=== PATIENT | female | born 1970 | race Caucasian/White ===

== ENCOUNTER 2024-05-26 09:18 | Outpatient (REF) | payer OTHER, MEDICARE, SELFPAY ==
[2024-05-26 10:34] LABS: MANUAL DIFF FLAG NO
[2024-05-26 11:03] LABS: Basophils Absolute Auto 0.1 X10*3/uL (0.0-0.2); Basophils Percent Auto 1.6 % (0-2); Eosinophils Absolute Auto 0.1 X10*3/uL (0.0-0.4); Eosinophils Percent Auto 1.9 % (0-4); Hematocrit 44.2 % (37.0-47.0); Hemoglobin 15.1 g/dl (12.0-16.0); Imm Gran Abs Auto 0.06 X10*3/uL (0.00-0.03); Imm Gran Pct Auto 1.1 % (0.0-0.4); Lymphocytes Absolute Auto 1.4 X10*3/uL (1.2-4.9); Lymphocytes Percent Auto 24.5 % (20-40); Mean Corpuscular HGB Conc 34.2 g/dl (31.0-35.0); Mean Platelet Volume 9.3 fL (9.4-12.3); Monocytes Absolute Auto 0.5 X10*3/uL (0.1-1.2); Monocytes Percent Auto 8.6 % (2-11); Neutrophils Absolute Auto 3.5 x10*3/uL (2.0-8.3); Neutrophils Percent Auto 62.3 % (45-73); Platelet Count 278 X10*3/uL (160-400); Red Cell Distribution Width 13.2 % (11.0-16.0); White Blood Count 5.7 X10*3/uL (4.8-10.8)
[2024-05-26 11:50] LABS: Alanine Aminotransferase 26 U/L (0-31); Albumin Level 4.4 g/dL (3.5-5.0); Alkaline Phosphatase 108 U/L (39-117); Anion Gap 14 (12-20); Aspartate Amino Transferase 30 U/L (5-31); Bilirubin Total 0.2 mg/dL (0.0-1.0); Blood Urea Nitrogen 13 mg/dL (9-16); Carbon Dioxide 26 mmol/L (22-29); Chloride 102 mmol/L (96-108); Estimated Glomerular Filt Rate > 60; Glucose Random 74 mg/dL (60-115); Potassium 4.1 mmol/L (3.3-5.1); Sodium 138 mmol/L (135-145); Total Protein 7.2 g/dL (6.5-8.0)
== END 2024-05-26 09:19 | disposition home or self-care (01) ==
LOC: HO.LAB 09:18
PROVIDERS: Visit Provider Nurse Practitioner
DX: Z01.818 Encounter for other preprocedural examination (principal); K22.70 Barrett's esophagus without dysplasia
CPT/HCPCS: 36415; 80053; 85025

== ENCOUNTER 2024-05-26 09:18 | Outpatient (AMB) | payer OTHER, MEDICARE, SELFPAY ==
--- NOTE | 2024-05-26 09:19 | A.OFFVIS_ITS ---
Vital Signs 3 05/26/24 09:20 Height 5 ft Weight 180 lb 12.465 oz BMI 35.3 BP 174/89 H Blood Pressure Location Lt brachial Position Sitting Respiration 87 H Intake Visit Reasons: Colonoscopy Screening Intake Note: CC: Last colonoscopy was done at [facility] 5 years ago and pre cancerous polyps were removed. She also states that she had an EGD done about 3 years ago at [facility] and was diagnosed with Epstein's esophagus. She also reports family hx of esophageal cancer. 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 Pt is s/p x5 strokes. Credentialing Analyst Required: No Accompanied by: self Allergies cephalexin [From Keflex] Allergy (Unknown, Verified 05/26/24 09:26) Unknown ciprofloxacin [From Cipro] Allergy (Unknown, Verified 05/26/24 09:26) Unknown meperidine [From Demerol] Allergy (Unknown, Verified 05/26/24 09:26) Unknown red dye Allergy (Unknown, Verified 05/26/24 09:44) Unknown terbutaline Allergy (Unknown, Verified 05/26/24 09:44) Unknown topiramate [From Topamax] Allergy (Unknown, Verified 05/26/24 09:44) Unknown HPI HPI Colonoscopy Screening: Details: 54-year-old female here for preprocedural meeting to discuss a screening colonoscopy. [facility] [place]. PMX Obesity Migraines Moyamoya Disease Herpes simplex GERD Barretts esophagus Nephrolithiasis * SURGICAL HISTORY brain vessel bypass OOpharectomy Tonsillectomy Eustasian tubes LIthotripsy Lap band with removal * ALLERGIES Keflex - hives Cipro - diarrhea Demerol - questionable had IV infiltration Topamax - renal stones Terbutaline - hives Red dye - ? migraines * MEDITECH LABS: none TODAY'S VISIT Her prior scope was 5 years ago and polyps were found at [facility]. EGD was at [facility]. She is experiencing incomplete evacuation this has changed over the past 8 mos she has had 4 children all vaginal, recommend a trial of senna. She has nausea r/t her migraines and is on zofran and compazine. At times she uses THC oil for his. She feels her GERD is controlled with the GERD and removal of the lap band. There are no prior problems with anesthesia or sedation. She denies any cardiac problems but has a history of strokes and is on asa only, she denies any respiratory problems No ID problems. No known FHX of crc or polyps but she has polyps in past scopes. [facility] Medical History Stroke Surgical History History of left oophorectomy History of esophagogastroduodenoscopy (EGD) H/O brain surgery LAP-BAND surgery status H/O colonoscopy Family History Father Esophageal cancer Paternal Uncle Esophageal cancer Paternal Aunt Esophageal cancer Paternal Uncle Esophageal cancer Maternal Grandmother Breast cancer Sister Breast cancer Family/Other Breast cancer Social History Alcohol intake: current Alcohol intake frequency: holidays/special occasions only Patient Tobacco Use Status: Former Tobacco user Years Smoked: quit 20 years ago Review of Systems Const Denies fatigue, Denies fever(s), Denies night sweats, Denies poor appetite and Denies weight loss ENT Reports Normal hearing present, Denies dental pain, Denies dysphagia, Denies hearing loss, Denies mouth pain, Denies odynophagia, Denies throat swelling, Denies tongue swelling and Reports other (Dentition adequate) Card Reports no additional complaints Resp Reports no additional complaints GI Details: Denies abdominal pain, Denies melena, Denies bloating, Denies hematochezia, Reports constipation, Denies GI cramping, Denies dysphagia, Denies excessive flatus, Denies early satiety, Denies heartburn, Denies diarrhea, Denies nausea, Denies odynophagia, Denies vomiting and Denies hematemesis Skin/Breast Denies pruritus, Denies lesions, Denies rash and Denies jaundice Neuro Reports Normal hearing present and Denies Abnormal speech present Endo Denies fatigue Aller/Immun Denies throat swelling and Denies tongue swelling Physical Exam Vital Signs: Last Vital Signs Resp 87 H 05/26/24 09:20 BP 174/89 H 05/26/24 09:20 BMI result Body Mass Index 35.3 Const General: cooperative, no acute distress, well developed and well groomed Nutritional Appearance: well nourished and obese Orientation/consciousness: oriented to person, oriented to place and oriented to time Limitations: No language barrier HEENT Head: Yes normocephalic and Yes atraumatic Eyes General: appearance normal, both eyes and all related structures Pupils: Equal, round and reactive pupils present Neck Neck: Yes normal visual inspection and Yes no lymphadenopathy Thyroid: Thyroid normal Resp Effort & Inspection: normal respiratory effort and able to speak in complete sentences Auscultation: clear to auscultation bilaterally Cardio Rate: regular rate Rhythm: regular rhythm Heart sounds: Normal, physiologic split S2 sound present Peripheral pulses: radial pulses present and posterior tibial pulses present GI Inspection: No distended, No Abdominal panniculus present, Yes obesity and Yes striae Palpation (GI): Soft to palpation, nontender, no guarding, not rigid and No hepatosplenomegaly present Percussion: Yes normal to percussion Auscultation: normal bowel sounds Rectal Exam - Female: deferred Abdomen image: 2 1. surgical scar 2. Skin General skin exam: no rashes or lesions noted, turgor normal, skin not dry, no jaundice, No spider nevi and no striae Rashes: no rashes Nails: normal Neuro General: oriented to person, oriented to place and oriented to time Cranial nerves: Yes Equal, round and reactive pupils present and Yes Normal hearing present Speech: No Abnormal speech present Extrem General: Yes normal to inspection, No clubbing, No cyanosis and No edema Psych Appearance: grossly normal and well kempt Mental Status: mental status grossly normal Speech and movement: Normal speech and movement present Affect: normal affect Attitude: cooperative Thought process: Normal thought process present and not confabulating Thought content: Normal thought content present Insight: Good insight present (Psych) Judgement: Good judgement present (Psych) Assessment & Plan Assessment & Plan (1) Pre-op examination: Code(s): Z01.818 - Encounter for other preprocedural examination Category: Medical (2) SSBE (short-segment Epstein's esophagus): Code(s): K22.70 - Epstein's esophagus without dysplasia Category: Medical (3) Chronic anticoagulation: Code(s): Z79.01 - intermodal dispatcher (current) use of anticoagulants Category: Medical (4) Constipation: Code(s): K59.00 - Constipation, unspecified Category: Medical Plan Her prior scope was 5 years ago and polyps were found at [facility]. EGD was at [facility]. She is experiencing incomplete evacuation this has changed over the past 8 mos she has had 4 children all vaginal, recommend a trial of senna. She has nausea r/t her migraines and is on zofran and compazine. At times she uses THC oil for his. She feels her GERD is controlled with the GERD and removal of the lap band. There are no prior problems with anesthesia or sedation. She denies any cardiac problems but has a history of strokes and is on asa only, she denies any respiratory problems No ID problems. No known FHX of crc or polyps but she has polyps in past scopes. Orders: Orders 2 Complete Blood Count Auto Diff 05/26/24 Z01.818 - Encounter for other preprocedural examination, K22.70 - Epstein's esophagus without dysplasia EGD/[facility] - GI Use Only 05/26/24 Z01.818 - Encounter for other preprocedural examination, K22.70 - Epstein's esophagus without dysplasia Comprehensive Met. Panel 05/26/24 Z01.818 - Encounter for other preprocedural examination, K22.70 - Epstein's esophagus without dysplasia Medications: New 2 sennosides (Senna Laxative) 17.2 mg (2 x 8.6 mg) PO BEDTIME 60 tabs 3RF K59.00 - Constipation, unspecified polyethylene glycol 3350 (Miralax) 238 grams PO ONCE 238 grams 0RF colonoscopy prep 1 day bisacodyl (Dulcolax (bisacodyl)) 10 mg (2 x 5 mg) PO BEDTIME 4 tabs 0RF 2 days Coding Level of Care Code New Pt Level 3 (89439) Diagnoses Pre-op examination Z01.818 SSBE (short-segment Epstein's esophagus) K22.70 Chronic anticoagulation Z79.01 Constipation K59.00
[2024-05-26 09:20] VITALS: BP 174/89; RESP 87; BMI 35.3
== END 2024-05-26 10:15 | disposition home or self-care (01) ==
LOC: HO.HGI 09:18
PROVIDERS: Visit Provider Nurse Practitioner
DX: Z01.818 Encounter for other preprocedural examination (principal); Z12.11 Encounter for screening for malignant neoplasm of colon; Z86.0100 Personal history of colon polyps, unspecified; K22.70 Barrett's esophagus without dysplasia; K59.00 Constipation, unspecified
CPT/HCPCS: S0285

== ENCOUNTER 2024-09-07 10:51 | Day surgery (SDC) | payer OTHER, MEDICARE, SELFPAY ==
[2024-09-02 15:41] VITALS: BMI 35.3
--- NOTE | 2024-09-03 10:10 | P.CONAN_ITS ---
Documented by User: Shaylee Alvarez NP 09/03/24 10:18 HPI - Anesthesia Eval Consult details Narrative: 54yo F for Upper Endoscopy and Colonoscopy [facility] ED 07/2024 with palps. Negative acute work up in ED. Seen by PCP. ECHO and holter done. Cardiology f/u visit 09/06/24. Requested office fax note over after appointment for review DOS. 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 [facility] Active Problems Active Problems: All Active Problems Constipation (Acute) History of multiple strokes (Acute) Chronic anticoagulation (Acute) Pre-op examination (Acute) SSBE (short-segment Epstein's esophagus) (Acute) GERD (gastroesophageal reflux disease) (Acute) Herpes simplex (Acute) Migraines (Acute) Obesity (Acute) Moyamoya disease (Acute) Past Medical History Medical History (Updated 09/02/24 @ 15:48 by Mahsa Garcia RN) H/O nausea Constipation GERD (gastroesophageal reflux disease) Epstein's esophagus Hx of renal calculi Migraines Anxiety History of palpitations Moyamoya disease Stroke Family History Family History Father Esophageal cancer Paternal Uncle Esophageal cancer Paternal Aunt Esophageal cancer Paternal Uncle Esophageal cancer Maternal Grandmother Breast cancer Sister Breast cancer Family/Other Breast cancer Surgical History Surgical History (Updated 09/07/24 @ 09:06 by Cathleen Pena RN) Hx of tonsillectomy History of left oophorectomy History of esophagogastroduodenoscopy (EGD) H/O brain surgery LAP-BAND surgery status H/O colonoscopy Social History Social History (Updated 09/02/24 @ 15:49 by Mahsa Garcia RN) Household Members: Spouse Housing: House Are you a primary healthcare administration intern to a significant other at home: No Do you presently have visiting nurse or other home services: No Alcohol intake: current Alcohol intake frequency: holidays/special occasions only Patient Tobacco Use Status: Former Tobacco user Tobacco use type: Cigarette Years Smoked: quit 20 years ago Smoked in Last 30 Days: No Substance Use Type Other:: THC oil Have you been hit, kicked, punched, or otherwise hurt by someone within the past year? If so, by whom?: No Are you DNR?: No Advance Directives: No (will bring dos) Advance Directives Information Provided: Yes Advance Directives on File: No Meds Allergies Allergy/AdvReac Type Severity Reaction Status Date / Time red dye Allergy Severe migraines Verified 09/07/24 11:05 cephalexin [From Keflex] Allergy Intermediate Hives Verified 09/07/24 11:05 ciprofloxacin [From Cipro] Allergy Intermediate Hives Verified 09/07/24 11:05 meperidine [From Demerol] Allergy Intermediate Hives Verified 09/07/24 11:05 terbutaline Allergy Unknown Unknown Verified 09/07/24 11:05 topiramate [From Topamax] AdvReac Intermediate renal Verified 09/07/24 11:05 calculi Home Medications ?Medication ?Instructions ?Recorded ?Confirmed ?Last Taken ?Type THC PO PRN Migraine Headache 05/26/24 Unknown History aspirin 325 mg tablet 325 mg PO DAILY 05/26/24 09/02/24 09/01/24 History black cohosh 200 mg capsule 200 mg PO DAILY 05/26/24 09/02/24 Unknown History botox injections PO .every 12 weeks 05/26/24 Unknown History erenumab-aooe 140 mg/mL 140 mg subcut .one a month 05/26/24 09/02/24 Unknown History subcutaneous auto-injector (Aimovig Autoinjector) fluticasone propionate 50 spray intranasal 05/26/24 Unknown History mcg/actuation nasal spray,suspension verapamil 120 mg 24 hr 120 mg PO DAILY 05/26/24 09/07/24 09/07/24 History capsule,extended release gmfusrdrsv-lxdpbubabyfmp-uutzmgjm 1 tab PO Q6H PRN Migraine Headache 09/02/24 09/02/24 Unknown History 50 mg-325 mg-40 mg tablet lisinopril 5 mg tablet 5 mg PO DAILY 09/02/24 09/02/24 Unknown History loratadine 10 mg capsule 10 mg PO DAILY 09/02/24 09/02/24 Unknown History Exam Height,Weight and Vital Signs: Height 5 ft Weight 82.1 kg Pertinent Lab Results Pertinent Lab Results: Laboratory Tests 05/26/24 10:34 WBC 5.7 Hgb 15.1 Hct 44.2 Plt Count 278 Sodium 138 Potassium 4.1 Chloride 102 Carbon Dioxide 26 BUN 13 Creatinine 0.73 Assessment and Plan Assessment Anesthesia Assessment: Chart Reviewed Documented by User: Cristian Samson MD 09/07/24 12:17 PMFSH Past Medical History Medical History (Updated 09/02/24 @ 15:48 by Mahsa Garcia, RN) H/O nausea Constipation GERD (gastroesophageal reflux disease) Epstein's esophagus Hx of renal calculi Migraines Anxiety History of palpitations Moyamoya disease Stroke Family History Family History Father Esophageal cancer Paternal Uncle Esophageal cancer Paternal Aunt Esophageal cancer Paternal Uncle Esophageal cancer Maternal Grandmother Breast cancer Sister Breast cancer Family/Other Breast cancer Family history of problems with anesthesia: No Surgical History Surgical History (Updated 09/07/24 @ 09:06 by Cathleen Pena, JANNETTE) Hx of tonsillectomy History of left oophorectomy History of esophagogastroduodenoscopy (EGD) H/O brain surgery LAP-BAND surgery status H/O colonoscopy History of Problems with Anesthesia: No Social History Social History (Updated 09/02/24 @ 15:49 by Mahsa Garcia, JANNETTE) Household Members: Spouse Housing: House Are you a primary healthcare administration intern to a significant other at home: No Do you presently have visiting nurse or other home services: No Alcohol intake: current Alcohol intake frequency: holidays/special occasions only Patient Tobacco Use Status: Former Tobacco user Tobacco use type: Cigarette Years Smoked: quit 20 years ago Smoked in Last 30 Days: No Substance Use Type Other:: THC oil Have you been hit, kicked, punched, or otherwise hurt by someone within the past year? If so, by whom?: No Are you DNR?: No Advance Directives: No (will bring dos) Advance Directives Information Provided: Yes Advance Directives on File: No Meds Allergies Allergy/AdvReac Type Severity Reaction Status Date / Time red dye Allergy Severe migraines Verified 09/07/24 11:05 cephalexin [From Keflex] Allergy Intermediate Hives Verified 09/07/24 11:05 ciprofloxacin [From Cipro] Allergy Intermediate Hives Verified 09/07/24 11:05 meperidine [From Demerol] Allergy Intermediate Hives Verified 09/07/24 11:05 terbutaline Allergy Unknown Unknown Verified 09/07/24 11:05 topiramate [From Topamax] AdvReac Intermediate renal Verified 09/07/24 11:05 calculi Home Medications ?Medication ?Instructions ?Recorded ?Confirmed ?Last Taken ?Type THC PO PRN Migraine Headache 05/26/24 Unknown History aspirin 325 mg tablet 325 mg PO DAILY 05/26/24 09/02/24 09/01/24 History black cohosh 200 mg capsule 200 mg PO DAILY 05/26/24 09/02/24 Unknown History botox injections PO .every 12 weeks 05/26/24 Unknown History erenumab-aooe 140 mg/mL 140 mg subcut .one a month 05/26/24 09/02/24 Unknown History subcutaneous auto-injector (Aimovig Autoinjector) fluticasone propionate 50 spray intranasal 05/26/24 Unknown History mcg/actuation nasal spray,suspension verapamil 120 mg 24 hr 120 mg PO DAILY 05/26/24 09/07/24 09/07/24 History capsule,extended release suhicucsgk-fmoaziuctgixo-pidgclcv 1 tab PO Q6H PRN Migraine Headache 09/02/24 09/02/24 Unknown History 50 mg-325 mg-40 mg tablet lisinopril 5 mg tablet 5 mg PO DAILY 09/02/24 09/02/24 Unknown History loratadine 10 mg capsule 10 mg PO DAILY 09/02/24 09/02/24 Unknown History Exam Airway Mallampati Class: II TM Dist: <=3cm Neck ROM: Full Heart: ok Lungs: ok Assessment and Plan Assessment Anesthesia Assessment: Anesthesia Plan Discussed Final Anesthetic Review Family History of Problems with Anesthesia: No History of Problems with Anesthesia: No NPO: Yes ASA Class: III Final Preanesthetic Review: No Changes in Pt Med Stat, Meds/Allgs Chart Reviewed, Consent Obtained/Reviewed and Anes Risks/Benef Reviewed Patient Risk: High Procedure Risk: Intermediate Anesthetic Plan Anesthetic Plan: Agree w/ Assess. and Plan and TIVA Disposition: Standard PACU
[2024-09-07 11:12] VITALS: BP 145/80; PULSE 74; RESP 14; TEMP 37.2; O2SAT 100
[2024-09-07 11:13] VITALS: BMI 38.9
[2024-09-07] MEDS: Lactated Ringers 1,000 ML 100 ML IVCONT (11:21)
--- NOTE | 2024-09-07 11:24 | MHC.SHP ---
Pre-Procedural Eval Section A - 24 Hr Update-Section A only Date of Service: 09/07/24 Section B - Complete if H&P > 30 days Chief Complaint: Epstein's esophagus without dysplasia Details of Present Illness: fh esophageal cancer Relevant Family History (Specify if Yes): Yes Relevant Social History: None Present Medications: see Short Stay Collaborative assessment Medical History: Significant History (H/O nausea Constipation GERD (gastroesophageal reflux disease) Epstein's esophagus Hx of renal calculi Migraines Anxiety History of palpitations Moyamoya disease Stroke) History of Previous Operations: Relevant previous surgery/procedure and date(s) ( History of left oophorectomy History of esophagogastroduodenoscopy (EGD) H/O brain surgery LAP-BAND surgery status H/O colonoscopy) Allergies: Allergies Allergy/AdvReac Type Severity Reaction Status Date / Time red dye Allergy Severe migraines Verified 09/07/24 11:05 cephalexin [From Keflex] Allergy Intermediate Hives Verified 09/07/24 11:05 ciprofloxacin [From Cipro] Allergy Intermediate Hives Verified 09/07/24 11:05 meperidine [From Demerol] Allergy Intermediate Hives Verified 09/07/24 11:05 terbutaline Allergy Unknown Unknown Verified 09/07/24 11:05 topiramate [From Topamax] AdvReac Intermediate renal Verified 09/07/24 11:05 calculi Review of Systems Sugical H&P ROS: Negative: Constitution, Cardiovascular, Respiratory, Neurological, Psychiatric, Hem-Onc, Allergic/Immunologic, Gastrointestinal, Genitourinary, Musculoskeletal, Integumentary, Endocrine and Eyes/Ears/Nose/Throat Exam Surgical H&P Exam: Normal: HEENT, Normal: Heart, Normal: Lungs, Normal: Extremities, Normal: Abdomen, Normal: Skin and Normal: Neurological Plan Diagnosis/Plan: Unchanged I have reviewed the history and physical and performed a pertinent physical examination on my patient. No changes have occurred unless specified. Time Spent With Patient Time: Total time managing care of this patient today ____ minutes.
--- NOTE | 2024-09-07 13:03 | HO.OPN-COLON ---
Colonoscopy Operative Note Operative Note Date of Service: 09/07/24 Narrative: Operative Information Procedure Description: EGD, Colonoscopy Indication: hx of barretts and polyps Anesthesia: MAC FLEXIBLE TRANSORAL UPPER GASTROINTESTINAL ENDOSCOPY AND COLONOSCOPY PROCEDURE NOTE UPPER ENDOSCOPY Consent: Indications for the procedure and potential complications of bleeding, perforation, reaction to medications and missed diagnosis were discussed with the patient and informed consent was obtained. Instrument: Olympus GIF H 190 J mid size upper endoscope Monitoring: Vital signs and clinical assessment, continuous EKG monitoring, Pulse oximetry, Carbon Dioxide monitoring and blood pressure monitoring were done throughout the procedure. Procedure: The patient was placed in the left lateral decubitis position and pre-procedure medications were administered and a bite block was placed. The endoscope was inserted into the mouth and advanced under direct vision to the third part of duodenum. A careful inspection was made as the upper endoscope was withdrawn including a retroflexed examination of the proximal stomach; Findings and interventions are described below. Findings: Larynx:normal Esophagus: GE junction at 38 cm, diaphragm hiatus at 38 cm, short tongues of possible barretts noted, bx taken and brushings for WATS Stomach: Patchy erythema with erosions. Biopsies were obtained. Grade 2 flap valve on retroflexed examination of the cardia. Duodenum: Normal bulb and descending duodenum, Intervention: Biopsies as noted above, brushings COLONOSCOPY Instrument: Olympus variable stiffness pediatric scope 190L Colonoscopy Monitoring: Vital signs and clinical assessment, continuous EKG monitoring, Pulse oximetry, Carbon Dioxide monitoring and blood pressure monitoring were done throughout the procedure. Colon withdrawal time was 16 minutes. Procedure: The patient was placed in the left lateral decubitis position and pre-procedure medications were administered. After a digital rectal examination of the ano-rectum, the video colonoscope was inserted into the rectum and advanced through the colon to the cecum/TI. The colonoscope was slowly withdrawn in a retrograde panoramic fashion and the colon mucosa was carefully examined including a retroflexed view of the rectum. Findings and interventions are described below. Procedure Difficulty:moderate Findings: Terminal Ileum-normal, bx taken Cecum: granular slightly coarse mucosa, bx taken. flat polyp 10 mm raised with eleview and removed with cold snare Ascending Colon: normal Transverse Colon -normal Descending Colon:normal Sigmoid Colon: normal Rectum: Retroflexion with small internal hemorrhoids, grade I Anorectum - normal Colon preparation: [place] Bowel Preparation Scale Right colon; 2 Transverse colon: 2 Left colon; 2 (0 = Unprepared colon segment with mucosa not seen due to solid stool that cannot be cleared. 1 = Portion of mucosa of the colon segment seen, but other areas of the colon segment not well seen due to staining, residual stool and/or opaque liquid. 2 = Minor amount of residual staining, small fragments of stool and/or opaque liquid, but mucosa of colon segment seen well. 3 = Entire mucosa of colon segment seen well with no residual staining, small fragments of stool or opaque liquid) Impression and Post Procedure Diagnosis: Endoscopy Findings: barretts gastritis Colonoscopy Findings: colon polyp internal hemorrhoids Plan: Await Pathology results Repeat Colonoscopy in 3 years due to flat polyp on the right or earlier if clinically indicated High fiber diet leaflet avoid straining at stool, epsom salts and sitz bath, anusol supps or cream repeat EGD 2-3 yrs due to FH of esophageal ca or earlier if clinically indicated Above findings were reviewed with the patient and relevant handouts were provided if indicated.
[2024-09-07 13:11] VITALS: BP 104/61; PULSE 64; RESP 16; TEMP 37; O2SAT 100
[2024-09-07 13:26] VITALS: BP 128/72; PULSE 65; RESP 18; TEMP 36.8; O2SAT 100
== END 2024-09-07 13:47 | disposition home or self-care (01) ==
PROVIDERS: PCP Internal Medicine; Visit Provider Internal Medicine Gastroenterology
PROC: (CPT 45385; principal; 2024-09-07 13:30)
DX: Z12.11 Encounter for screening for malignant neoplasm of colon (principal); Z86.0101 Personal history of adenomatous and serrated colon polyps; D12.0 Benign neoplasm of cecum; K64.0 First degree hemorrhoids; K59.00 Constipation, unspecified; K22.70 Barrett's esophagus without dysplasia; K29.60 Other gastritis without bleeding; K44.9 Diaphragmatic hernia without obstruction or gangrene; K21.9 Gastro-esophageal reflux disease without esophagitis; I67.5 Moyamoya disease; I10 Essential (primary) hypertension; R00.2 Palpitations; G43.909 Migraine, unspecified, not intractable, without status migrainosus; F41.9 Anxiety disorder, unspecified; Z86.73 Personal history of transient ischemic attack (TIA), and cerebral infarction without residual deficits; Z79.01 Long term (current) use of anticoagulants; Z88.1 Allergy status to other antibiotic agents; Z88.5 Allergy status to narcotic agent; Z91.048 Other nonmedicinal substance allergy status; Z98.84 Bariatric surgery status; Z87.442 Personal history of urinary calculi; Z98.890 Other specified postprocedural states; Z87.891 Personal history of nicotine dependence; Z79.82 Long term (current) use of aspirin; Z79.899 Other long term (current) drug therapy
CPT/HCPCS: 45385; 45380; 45381; 43239; 88305; 88342; J2003; J2250; J2371; J2704; J3010

== ENCOUNTER → 2024-09-07 10:51 | Outpatient (BNV) | payer OTHER, MEDICARE, SELFPAY | PROVIDERS: PCP Internal Medicine; Visit Provider Internal Medicine Gastroenterology | DX: Z12.11 Encounter for screening for malignant neoplasm of colon (principal); Z86.0101 Personal history of adenomatous and serrated colon polyps; D12.0 Benign neoplasm of cecum; K64.0 First degree hemorrhoids; K22.70 Barrett's esophagus without dysplasia; K29.70 Gastritis, unspecified, without bleeding | CPT/HCPCS: 43239; 45381; 45385 ==

== ENCOUNTER 2024-11-25 09:19 | Outpatient (AMB) | payer OTHER, MEDICARE, SELFPAY ==
--- NOTE | 2024-11-25 09:22 | MHC.OFFVIS ---
Vital Signs 11/25/24 09:26 Height 5 ft Weight 195 lb BMI 38.1 BP 132/70 Blood Pressure Location Rt brachial Position Sitting Pulse 74 Pulse Source Pulse Oximeter Pulse Oximetry (%) 100 Oxygen Delivery Method Room Air Intake Visit Reasons: s/p Double; Dr. Shore R/S from 09/21/24 Intake Note: ESTABLISHED PATIENT for mgmt of GERD + constipation. S/P duo 09/07 w/ Dr. Shore CC; Pt denies any GI sx at this time. Pt comments that reflux is well controlled and she does not have any concerns regarding constipation. Pt is here to review results. Fruit Vendor Required: No Accompanied by: Self / Same As Patient Allergies red dye Allergy (Severe, Verified 11/25/24 09:30) migraines cephalexin [From Keflex] Allergy (Intermediate, Verified 11/25/24 09:30) Hives ciprofloxacin [From Cipro] Allergy (Intermediate, Verified 11/25/24 09:30) Hives meperidine [From Demerol] Allergy (Intermediate, Verified 11/25/24 09:30) Hives terbutaline Allergy (Unknown, Verified 11/25/24 09:30) Unknown topiramate [From Topamax] Adverse Reaction (Intermediate, Verified 11/25/24 09:30) renal calculi HPI HPI s/p Double; Dr. Shore R/S from 09/21/24: Details: Assessment & Plan (1) Pre-op examination: Code(s): Z01.818 - Encounter for other preprocedural examination Category: Medical (2) SSBE (short-segment Epstein's esophagus): Code(s): K22.70 - Epstein's esophagus without dysplasia Category: Medical (3) Chronic anticoagulation: Code(s): Z79.01 - half-way (current) use of anticoagulants Category: Medical (4) Constipation: Code(s): K59.00 - Constipation, unspecified Category: Medical Plan Her prior scope was 5 years ago and polyps were found at [facility]. EGD was at [facility]. She is experiencing incomplete evacuation this has changed over the past 8 mos she has had 4 children all vaginal, recommend a trial of senna. She has nausea r/t her migraines and is on zofran and compazine. At times she uses THC oil for his. She feels her GERD is controlled with the GERD and removal of the lap band. There are no prior problems with anesthesia or sedation. She denies any cardiac problems but has a history of strokes and is on asa only, she denies any respiratory problems No ID problems. No known FHX of crc or polyps but she has polyps in past scopes. Orders: Orders Complete Blood Count Auto Diff 05/26/24 Z01.818 - Encounter for other preprocedural examination, K22.70 - Epstein's esophagus without dysplasia EGD/[facility] - GI Use Only 05/26/24 Z01.818 - Encounter for other preprocedural examination, K22.70 - Epstein's esophagus without dysplasia Comprehensive Met. Panel 05/26/24 Z01.818 - Encounter for other preprocedural examination, K22.70 - Epstein's esophagus without dysplasia Medications: New sennosides (Senna Laxative) 17.2 mg (2 x 8.6 mg) PO BEDTIME 60 tabs 3RF K59.00 - Constipation, unspecified polyethylene glycol 3350 (Miralax) 238 grams PO ONCE 238 grams 0RF colonoscopy prep 1 day bisacodyl (Dulcolax (bisacodyl)) 10 mg (2 x 5 mg) PO BEDTIME 4 tabs 0RF 2 days LABS: Laboratory Tests 05/26/24 10:34 WBC 5.7 Hgb 15.1 Hct 44.2 Plt Count 278 Estimated GFR > 60 Total Bilirubin 0.2 AST 30 ALT 26 Alkaline Phosphatase 108 EGD/COLONOSCOPY 09/07/24 Larynx:normal Esophagus: GE junction at 38 cm, diaphragm hiatus at 38 cm, short tongues of possible barretts noted, bx taken and brushings for WATS Stomach: Patchy erythema with erosions. Biopsies were obtained. Grade 2 flap valve on retroflexed examination of the cardia. Duodenum: Normal bulb and descending duodenum, Findings: Terminal Ileum-normal, bx taken Cecum: granular slightly coarse mucosa, bx taken. flat polyp 10 mm raised with eleview and removed with cold snare Ascending Colon: normal Transverse Colon -normal Descending Colon:normal Sigmoid Colon: normal Rectum: Retroflexion with small internal hemorrhoids, grade I Anorectum - normal Impression and Post Procedure Diagnosis: Endoscopy Findings: barretts gastritis Colonoscopy Findings: colon polyp internal hemorrhoids Plan: Await Pathology results Repeat Colonoscopy in 3 years due to flat polyp on the right or earlier if clinically indicated High fiber diet leaflet avoid straining at stool, epsom salts and sitz bath, anusol supps or cream repeat EGD 2-3 yrs due to FH of esophageal ca or earlier if clinically indicated BIOPSY Received: 09/07/24 ADDENDUM REPORT Addendum Addendum #1 (B): TissueCypher results: Risk Class: Low Risk Score: 1.5 (range 0 ? 10) 5-year probability of progression: 0.60% See entire scanned report in EMR - report/pathology section (camera icon). Electronically Signed By: Mahsa Mata 09/23/24 1358 Diagnosis A. Stomach, biopsy: Gastric antral/body mucosa with minimal chronic inactive gastritis; negative for H. pylori, intestinal metaplasia and dysplasia. B. Gastroesophageal junction, biopsy: Squamous mucosa with hyperplasia and focal intraepithelial neutrophils and eosinophils (up to 5 per high-power field) consistent with esophagitis, and columnar mucosa with mild inflammation and intestinal metaplasia; negative for dysplasia (see comment). C. Colon, cecal polyp: Tubular adenoma; negative for high-grade dysplasia and carcinoma. D. Terminal ileum, biopsy: Ileal mucosa with no specific change. E. Colon, cecum, biopsy: Colonic mucosa with no specific change. Comment: (B): These findings are consistent with Epstein's esophagus if the biopsies were taken from above the anatomic gastroesophageal junction. Clinical and endoscopic correlation is advised. TissueCypher testing pending; report to follow TODAY'S VISIT The procedure needs to be repeated in 3 years r/t sessile polyps. The procedure was well tolerated. The results were explained and the patient is agreeable to the follow-up interval as stated. The bowel pattern has returned to normal. Education was provided to tell any 1st degree relatives about their findings to be sure that they are screened by age 45. Educated that they will be put on a recall list when it is time for their repeat scope but should they move out of state or away from the hospital they will need to remember along with their primary to repeat the procedure in a timely fashion to avoid any adverse complications. She is aware of the SSBE and we will repeat the EGD at the 2 year jose as well. Increasing the pantoprazle to bid since she does continue to show active esophagitis to best protect her health going forward. She has had 3 first-degree family members of esophageal cancer so clearly this carries a hereditary risk. She continues on senna for her constipation. ROV 6 mos [facility] Medical History (Updated 11/25/24 @ 16:59 by EVONNE Archer) Pre-op examination H/O nausea Constipation GERD (gastroesophageal reflux disease) Epstein's esophagus Hx of renal calculi Migraines Anxiety History of palpitations Moyamoya disease Stroke Surgical History Hx of tonsillectomy History of left oophorectomy History of esophagogastroduodenoscopy (EGD) H/O brain surgery LAP-BAND surgery status H/O colonoscopy Family History Father Esophageal cancer Paternal Uncle Esophageal cancer Paternal Aunt Esophageal cancer Paternal Uncle Esophageal cancer Maternal Grandmother Breast cancer Sister Breast cancer Family/Other Breast cancer Social History Household Members: Spouse Housing: House Are you a primary residential care officer to a significant other at home: No Do you presently have visiting nurse or other home services: No Alcohol intake: current Alcohol intake frequency: holidays/special occasions only Patient Tobacco Use Status: Former Tobacco user Tobacco use type: Cigarette Years Smoked: quit 20 years ago Review of Systems Const Denies fatigue, Denies fever(s), Denies night sweats, Denies poor appetite and Denies weight loss ENT Reports Normal hearing present, Denies dental pain, Denies dysphagia, Denies hearing loss, Denies mouth pain, Denies odynophagia, Denies throat swelling, Denies tongue swelling and Reports other (Dentition adequate) Card Reports no additional complaints Resp Reports no additional complaints GI Details: Denies abdominal pain, Denies melena, Denies bloating, Denies hematochezia, Reports constipation, Denies GI cramping, Denies dysphagia, Denies excessive flatus, Denies early satiety, Reports heartburn, Denies diarrhea, Denies nausea, Denies odynophagia, Denies vomiting and Denies hematemesis Skin/Breast Denies pruritus, Denies lesions, Denies rash and Denies jaundice Neuro Reports Normal hearing present and Denies Abnormal speech present Endo Denies fatigue Aller/Immun Denies throat swelling and Denies tongue swelling Physical Exam Vital Signs: Last Vital Signs Pulse 74 11/25/24 09:26 BP 132/70 11/25/24 09:26 Pulse Ox 100 11/25/24 09:26 Oxygen Delivery Method Room Air 11/25/24 09:26 BMI result Body Mass Index 38.1 Const General: cooperative, no acute distress, well developed and well groomed Nutritional Appearance: well nourished and obese Orientation/consciousness: oriented to person, oriented to place and oriented to time Limitations: No language barrier HEENT Head: Yes normocephalic and Yes atraumatic Eyes General: appearance normal, both eyes and all related structures Pupils: Equal, round and reactive pupils present Neck Neck: Yes normal visual inspection and Yes no lymphadenopathy Thyroid: Thyroid normal Resp Effort & Inspection: normal respiratory effort and able to speak in complete sentences Auscultation: clear to auscultation bilaterally Cardio Rate: regular rate Rhythm: regular rhythm Heart sounds: Normal, physiologic split S2 sound present Peripheral pulses: radial pulses present and posterior tibial pulses present GI Inspection: No distended, Yes Abdominal panniculus present and Yes obesity Palpation (GI): Soft to palpation, nontender, no guarding, not rigid and No hepatosplenomegaly present Percussion: Yes normal to percussion Auscultation: normal bowel sounds Rectal Exam - Female: deferred Skin General skin exam: no rashes or lesions noted, turgor normal, skin not dry, no jaundice, No spider nevi and no striae Rashes: no rashes Nails: normal Neuro General: oriented to person, oriented to place and oriented to time Cranial nerves: Yes Equal, round and reactive pupils present and Yes Normal hearing present Speech: No Abnormal speech present Extrem General: Yes normal to inspection, No clubbing, No cyanosis and No edema Psych Appearance: grossly normal and well kempt Mental Status: mental status grossly normal Speech and movement: Normal speech and movement present Affect: normal affect Attitude: cooperative Thought process: Normal thought process present and not confabulating Thought content: Normal thought content present Insight: Good insight present (Psych) Judgement: Good judgement present (Psych) Assessment & Plan Assessment & Plan (1) GERD (gastroesophageal reflux disease): Code(s): K21.9 - Gastro-esophageal reflux disease without esophagitis Category: Medical (2) SSBE (short-segment Epstein's esophagus): Code(s): K22.70 - Epstein's esophagus without dysplasia Category: Medical (3) Erosive esophagitis: Code(s): K22.10 - Ulcer of esophagus without bleeding Category: Medical (4) Erosive gastritis: Code(s): K29.60 - Other gastritis without bleeding Category: Medical (5) Constipation: Code(s): K59.00 - Constipation, unspecified Category: Medical Plan The procedure needs to be repeated in 3 years r/t sessile polyps. The procedure was well tolerated. The results were explained and the patient is agreeable to the follow-up interval as stated. The bowel pattern has returned to normal. Education was provided to tell any 1st degree relatives about their findings to be sure that they are screened by age 45. Educated that they will be put on a recall list when it is time for their repeat scope but should they move out of state or away from the hospital they will need to remember along with their primary to repeat the procedure in a timely fashion to avoid any adverse complications. She is aware of the SSBE and we will repeat the EGD at the 2 year jose as well. Increasing the pantoprazle to bid since she does continue to show active esophagitis to best protect her health going forward. She has had 3 first-degree family members of esophageal cancer so clearly this carries a hereditary risk. She continues on senna for her constipation. ROV 6 mos Medications: Changed From pantoprazole 40 mg PO DAILY 30 tabs 0RF K21.9 - Gastro-esophageal reflux disease without esophagitis, K22.10 - Ulcer of esophagus without bleeding, K22.70 - Epstein's esophagus without dysplasia, K29.60 - Other gastritis without bleeding To pantoprazole 40 mg PO BID 60 tabs 12RF K21.9 - Gastro-esophageal reflux disease without esophagitis, K22.10 - Ulcer of esophagus without bleeding, K22.70 - Epstein's esophagus without dysplasia, K29.60 - Other gastritis without bleeding Discontinued bisacodyl (Dulcolax (bisacodyl)) Discontinued Reason: Patient Completed Course 10 mg (2 x 5 mg) PO BEDTIME 2 days 4 tabs 0RF Coding Level of Care Code Est Pt Level 3 (41761) Diagnoses GERD (gastroesophageal reflux disease) K21.9 SSBE (short-segment Epsetin's esophagus) K22.70 Erosive esophagitis K22.10 Erosive gastritis K29.60 Constipation K59.00
[2024-11-25 09:26] VITALS: BP 132/70; PULSE 74; O2SAT 100; BMI 38.1
== END 2024-11-25 10:18 | disposition home or self-care (01) ==
LOC: HO.HGI 09:20
PROVIDERS: PCP Internal Medicine; Visit Provider Nurse Practitioner
DX: K21.9 Gastro-esophageal reflux disease without esophagitis (principal); K22.70 Barrett's esophagus without dysplasia; K29.60 Other gastritis without bleeding; K59.00 Constipation, unspecified
CPT/HCPCS: 99213

== ENCOUNTER → 2024-11-25 09:19 | Outpatient (BNVA) | payer OTHER, MEDICARE, SELFPAY | PROVIDERS: PCP Internal Medicine; Visit Provider Nurse Practitioner ==

== ENCOUNTER 2025-05-24 08:41 | Outpatient (AMB) | payer OTHER, MEDICARE, SELFPAY ==
[2025-05-24 08:51] VITALS: BP 132/75; PULSE 72; BMI 40.0
--- NOTE | 2025-05-24 08:51 | MHC.OFFVIS ---
Vital Signs 05/24/25 08:51 Height 5 ft Weight 205 lb 0.478 oz BMI 40.0 BP 132/75 Blood Pressure Location Lt brachial Position Sitting Pulse 72 Intake Visit Reasons: 6 mo f/u IBS, SSBE Intake Note: Nadia presents in the office as a 6 month follow up for IBS and SSBE. CC: had an injection in her back since her back. She states she is on a GLP1 that would not be listed in the medications. She states if she does not take her medications she notices a difference but taking medications she is okay. Health Professor Required: No Allergies red dye Allergy (Severe, Verified 05/24/25 08:55) migraines cephalexin (From Keflex) Allergy (Intermediate, Verified 05/24/25 08:55) Hives ciprofloxacin (From Cipro) Allergy (Intermediate, Verified 05/24/25 08:55) Hives meperidine (From Demerol) Allergy (Intermediate, Verified 05/24/25 08:55) Hives terbutaline Allergy (Unknown, Verified 05/24/25 08:55) Unknown topiramate (From Topamax) Adverse Reaction (Intermediate, Verified 05/24/25 08:55) renal calculi HPI HPI 6 mo f/u IBS, SSBE: Details: Assessment & Plan (1) GERD (gastroesophageal reflux disease): Code(s): K21.9 - Gastro-esophageal reflux disease without esophagitis Category: Medical (2) SSBE (short-segment Epstein's esophagus): Code(s): K22.70 - Epstein's esophagus without dysplasia Category: Medical (3) Erosive esophagitis: Code(s): K22.10 - Ulcer of esophagus without bleeding Category: Medical (4) Erosive gastritis: Code(s): K29.60 - Other gastritis without bleeding Category: Medical (5) Constipation: Code(s): K59.00 - Constipation, unspecified Category: Medical Plan The procedure needs to be repeated in 3 years r/t sessile polyps. The procedure was well tolerated. The results were explained and the patient is agreeable to the follow-up interval as stated. The bowel pattern has returned to normal. Education was provided to tell any 1st degree relatives about their findings to be sure that they are screened by age 45. Educated that they will be put on a recall list when it is time for their repeat scope but should they move out of state or away from the hospital they will need to remember along with their primary to repeat the procedure in a timely fashion to avoid any adverse complications. She is aware of the SSBE and we will repeat the EGD at the 2 year jose as well. Increasing the pantoprazle to bid since she does continue to show active esophagitis to best protect her health going forward. She has had 3 first-degree family members of esophageal cancer so clearly this carries a hereditary risk. She continues on senna for her constipation. ROV 6 mos Medications: Changed From pantoprazole 40 mg PO DAILY 30 tabs 0RF K21.9 - Gastro-esophageal reflux disease without esophagitis, K22.10 - Ulcer of esophagus without bleeding, K22.70 - Epstein's esophagus without dysplasia, K29.60 - Other gastritis without bleeding To pantoprazole 40 mg PO BID 60 tabs 12RF K21.9 - Gastro-esophageal reflux disease without esophagitis, K22.10 - Ulcer of esophagus without bleeding, K22.70 - Epstein's esophagus without dysplasia, K29.60 - Other gastritis without bleeding Discontinued bisacodyl (Dulcolax (bisacodyl)) Discontinued Reason: Patient Completed Course 10 mg (2 x 5 mg) PO BEDTIME 2 days 4 tabs 0RF TODAY'S VISIT COUNTS INCLUDE [facility] BEDS AT THE [facility] Medical History Pre-op examination H/O nausea Constipation GERD (gastroesophageal reflux disease) Epstein's esophagus Hx of renal calculi Migraines Anxiety History of palpitations Moyamoya disease Stroke Surgical History Hx of tonsillectomy History of left oophorectomy History of esophagogastroduodenoscopy (EGD) H/O brain surgery LAP-BAND surgery status H/O colonoscopy Family History Father Esophageal cancer Paternal Uncle Esophageal cancer Paternal Aunt Esophageal cancer Paternal Uncle Esophageal cancer Maternal Grandmother Breast cancer Sister Breast cancer Family/Other Breast cancer Social History Household Members: Spouse Housing: House Are you a primary care team coordinator scheduler to a significant other at home: No Do you presently have visiting nurse or other home services: No Alcohol intake: current Alcohol intake frequency: holidays/special occasions only Patient Tobacco Use Status: Former Tobacco user Tobacco use type: Cigarette Years Smoked: quit 20 years ago Review of Systems Const Denies fatigue, Denies fever(s), Denies night sweats, Denies poor appetite and Reports weight loss (Intentional dieting) ENT Reports Normal hearing present, Denies dental pain, Denies dysphagia, Denies hearing loss, Denies mouth pain, Denies odynophagia, Denies throat swelling, Denies tongue swelling and Reports other (Dentition adequate) Card Reports no additional complaints Resp Reports no additional complaints GI Details: Denies abdominal pain, Denies melena, Denies bloating, Denies hematochezia, Denies constipation, Denies GI cramping, Denies dysphagia, Denies excessive flatus, Denies early satiety, Reports heartburn, Denies diarrhea, Denies nausea, Denies odynophagia, Denies vomiting and Denies hematemesis Skin/Breast Denies pruritus, Denies lesions, Denies rash and Denies jaundice Neuro Reports Normal hearing present and Denies Abnormal speech present Endo Denies fatigue Aller/Immun Denies throat swelling and Denies tongue swelling Physical Exam Vital Signs: Last Vital Signs Pulse 72 05/24/25 08:51 BP 132/75 05/24/25 08:51 BMI result Body Mass Index 40.0 Const General: cooperative, no acute distress, well developed and well groomed Nutritional Appearance: well nourished and obese Orientation/consciousness: oriented to person, oriented to place and oriented to time Limitations: No language barrier HEENT Head: Yes normocephalic and Yes atraumatic Eyes General: appearance normal, both eyes and all related structures Pupils: Equal, round and reactive pupils present Neck Neck: Yes normal visual inspection and Yes no lymphadenopathy Thyroid: Thyroid normal Resp Effort & Inspection: normal respiratory effort and able to speak in complete sentences Auscultation: clear to auscultation bilaterally Cardio Rate: regular rate Rhythm: regular rhythm Heart sounds: Normal, physiologic split S2 sound present Peripheral pulses: radial pulses present and posterior tibial pulses present GI Inspection: No distended, Yes Abdominal panniculus present and Yes obesity Palpation (GI): Soft to palpation, nontender, no guarding, not rigid and No hepatosplenomegaly present Percussion: Yes normal to percussion Auscultation: normal bowel sounds Rectal Exam - Female: deferred Skin General skin exam: no rashes or lesions noted, turgor normal, skin not dry, no jaundice, No spider nevi and no striae Rashes: no rashes Nails: normal Neuro General: oriented to person, oriented to place and oriented to time Cranial nerves: Yes Equal, round and reactive pupils present and Yes Normal hearing present Speech: No Abnormal speech present Extrem General: Yes normal to inspection, No clubbing, No cyanosis and No edema Psych Appearance: grossly normal and well kempt Mental Status: mental status grossly normal Speech and movement: Normal speech and movement present Affect: normal affect Attitude: cooperative Thought process: Normal thought process present and not confabulating Thought content: Normal thought content present Insight: Good insight present (Psych) Judgement: Good judgement present (Psych) Assessment & Plan Assessment & Plan (1) Erosive gastritis: Code(s): K29.60 - Other gastritis without bleeding Category: Medical (2) Constipation: Code(s): K59.00 - Constipation, unspecified Category: Medical (3) SSBE (short-segment Epstein's esophagus): Comment: repeat 2027 Code(s): K22.70 - Epstein's esophagus without dysplasia Category: Medical (4) GERD (gastroesophageal reflux disease): Code(s): K21.9 - Gastro-esophageal reflux disease without esophagitis Category: Medical Plan She continues to do well on her pantoprazole in terms of subjective symptoms. She is aware that she will be due for repeat EGD in 2027 as well as I believe colonoscopy. She has been doing well she is using her own peptide concoction from a compounding pharmacy to lose weight that is similar to a GLP 1. This is because her insurance would not cover any of the injectables. She cares for her mother who is 89 and this keeps a very busy! She denies having any current constipation, she thinks that in the past she had incomplete evacuation mostly related to a postsurgical situation. Now she is doing well managing this with diet and exercise. Return office visit in 1 year Medications: Refilled pantoprazole 40 mg PO BID 60 tabs 12RF K21.9 - Gastro-esophageal reflux disease without esophagitis, K22.10 - Ulcer of esophagus without bleeding, K22.70 - Epstein's esophagus without dysplasia, K29.60 - Other gastritis without bleeding Coding Level of Care Code Est Pt Level 3 (88303) Diagnoses Erosive gastritis K29.60 Constipation K59.00 SSBE (short-segment Epstein's esophagus) K22.70 GERD (gastroesophageal reflux disease) K21.9
--- OUTSIDE RECORDS SUMMARY | 2025-05-24 09:07 | XMS_ITS | Clinical Summary ---
Author Organization [facility] Address [address] [place] [phone] Phone Care Team Providers Care Herb Counselor Name Role Phone Unknown, Unknown Primary Care Provider Tiana rodriguez Social History Tobacco Use Types Packs/Day Years Used Date Smoking Tobacco: Former Comments Unknown Sex and Gender Information Value Date Recorded Sex Assigned at Not on file Legal Sex Female 3:56 PM EDT Gender Identity Not on file Sexual Orientation Not on file Last Filed Vital Signs Vital Sign Reading Time Taken Comments Blood Pressure 145/82 06/05/2015 12:46 PM EST Pulse 85 06/05/2015 12:46 PM EST Temperature 36.8 C (98.2 F) 06/05/2015 12:46 PM EST Respiratory Rate - - Oxygen Saturation - - Inhaled Oxygen Concentration - - Weight 81.6 kg (180 lb) 06/05/2015 12:46 PM EST Height 156.2 cm (5' 1.5 ) 06/05/2015 12:46 PM ES T Body Mass Index 33.46 06/05/2015 12:46 PM EST Plan of Treatment Not on file Medical Devices Not on file Insurance [facility] HMO Member Subscriber Plan / Payer (Ef fective 2015-Present) Name:Ivette Rasmussen Relation to Subscriber:Self Name:Ivette Rasmussen Payer ID:Not on file Type:O Address: [place] [id number] Care Teams Herb Counselor Relationship Specialty Start Date End Date Unknown, Unknown, PCP - General 04/18/15 Additional Source Comments The information contained in this document represents components of the legal health record. It is not the complete legal health record.[facility]
== END 2025-05-24 09:38 | disposition home or self-care (01) ==
LOC: HO.HGI 08:41
PROVIDERS: PCP Internal Medicine; Visit Provider Nurse Practitioner
DX: K29.60 Other gastritis without bleeding (principal); K59.00 Constipation, unspecified; K22.70 Barrett's esophagus without dysplasia; K21.9 Gastro-esophageal reflux disease without esophagitis
CPT/HCPCS: 99213